=== PATIENT | female | born 1965 | race Asian ===

== ENCOUNTER → 2023-12-10 07:33 | Outpatient (CLI) | payer OTHER, SELFPAY ==
--- NOTE | 2023-12-10 07:35 | DI.US.S_ITS ---
PROCEDURE: US ABDOMEN COMPLETE INDICATIONS: RUQ PAIN / ABNORMAL LEVELS OF SERUM TECHNIQUE: Real-time scanning was performed of the abdominal and retroperitoneal organs, with image documentation. COMPARISON: None. FINDINGS: Liver: The liver demonstrates diffusely increased echotexture without focal abnormalities consistent with chronic hepatocellular disease/hepatic steatosis. Gallbladder: No gallstones. No wall thickening. No pericholecystic edema. Negative sonographic Graham's sign. Biliary ducts: Intrahepatic bile ducts are non-dilated. Extrahepatic bile duct caliber measures 2 mm. Normal is 6-7 mm or less in diameter, or 10 mm or less post-cholecystectomy. Pancreas: Visualized portions of the pancreas are sonographically normal. Miscellaneous: No free abdominal fluid. Right kidney is normal in size and echotexture. Right kidney measures 10.3 cm long. No hydronephrosis or nephrolithiasis. No solid masses. IMPRESSION: The liver demonstrates diffusely increased echotexture without focal abnormalities consistent with chronic hepatocellular disease/hepatic steatosis. Findings may correlate with abnormal liver function tests. Dictated by: Chilango Luis M.D. on 12/10/2023 at 8:37 Approved by: Chilango Luis M.D. on 12/10/2023 at 8:41
== END ==
PROVIDERS: PCP Nurse Practitioner Family; Referring Provider Nurse Practitioner Family; Visit Provider Nurse Practitioner Family
DX: R74.8 Abnormal levels of other serum enzymes (principal)
CPT/HCPCS: 76700

== ENCOUNTER → 2024-07-29 07:48 | Outpatient (CLI) | payer OTHER, SELFPAY ==
--- NOTE | 2024-07-29 07:49 | DI.US.S_ITS ---
PROCEDURE: US ABDOMEN LIMITED INDICATIONS: abnormal levels of serum enzymes TECHNIQUE: Real-time scanning was performed of the abdominal and retroperitoneal organs, with image documentation. COMPARISON: [facility], [place], US ABDOMEN COMPLETE, 12/10/2023, 7:58. FINDINGS: Liver: Liver is normal in size and homogeneous in echotexture. The parenchyma is hyperechoic. Gallbladder: 2 small stones are present at the gallbladder neck. No wall thickening. No pericholecystic edema. Negative sonographic Graham's sign. Biliary ducts: Intrahepatic bile ducts are non-dilated. Extrahepatic bile duct caliber measures 7 mm. Normal is 6-7 mm or less in diameter, or 10 mm or less post-cholecystectomy. Pancreas: Obscured due to bowel gas. Miscellaneous: No free abdominal fluid. IMPRESSION: 1. Hepatic steatosis versus underlying hepatocellular disease. 2. Cholelithiasis without sonographic evidence of acute cholecystitis. Dictated by: Georges Broderick M.D. on 07/31/2024 at 15:15 Approved by: Georges Broderick M.D. on 07/31/2024 at 15:16
--- NOTE | 2024-07-29 07:49 | DI.US.S_ITS ---
PROCEDURE: US THYROID INDICATIONS: Pain in throat TECHNIQUE: Real-time scanning was performed of the thyroid gland, with image documentation. COMPARISON: None. FINDINGS: Thyroid: Right lobe measures 3.9 x 1.7 x 1.3 cm. Left lobe measures 3.7 x 1.1 x 1.3 cm. Isthmus is 0.2 cm thick. Echotexture is homogeneous. Nodule number: 1 Location: Right inferior lobe Size: 0.9 x 0.7 x 0.7 cm. Composition: Solid Echogenicity: Cannot be determined Shape: Wider than tall Margins: Cannot be determined Echogenic foci: Macrocalcifications Total points: 4 ACR TI-RADS category: TR 4 IMPRESSION: Single right inferior lobe 0.9 cm nodule, which does not meet criteria for follow-up. No other acute sonographic abnormality of the thyroid gland. ACR TI-RADS definitions and recommendations: TI-RADS 1 (benign): 0 points. FNA not needed. TI-RADS 2 (not suspicious): 2 points. FNA not needed. TI-RADS 3: 3 points. * FNA if 2.5 cm or larger, follow up if 1.5 cm or larger (at 1, 3, and 5 years). TI-RADS 4: 4-6 points. * FNA if 1.5 cm or larger, follow up if 1 cm or larger (at 1, 2, 3, and 5 years). TI-RADS 5: 7 points or more. * FNA if 1 cm or larger, follow up if 0.5 cm or larger (every year for 5 years). Dictated by: Georges Broderick M.D. on 07/31/2024 at 15:11 Approved by: Georges Broderick M.D. on 07/31/2024 at 15:14
== END ==
PROVIDERS: PCP Nurse Practitioner Family; Referring Provider Nurse Practitioner Family; Visit Provider Nurse Practitioner Family
DX: E04.1 Nontoxic single thyroid nodule (principal); K80.20 Calculus of gallbladder without cholecystitis without obstruction; R07.0 Pain in throat; R74.8 Abnormal levels of other serum enzymes
CPT/HCPCS: 76536; 76705